=== PATIENT | female | born 1955 | race Caucasian/White ===

== ENCOUNTER 2021-09-11 13:49 | Emergency (ER) | payer OTHER ==
[2021-09-11] MEDS ORDERED: Bupivacaine 0.5% 10 ML VIAL ONE (14:01)
== END 2021-09-11 14:13 | disposition home or self-care (01) ==
LOC: BURERS 13:49
DX: K03.81 Cracked tooth (principal); K02.9 Dental caries, unspecified; I10 Essential (primary) hypertension; Z79.899 Other long term (current) drug therapy
CPT/HCPCS: 64400; J3490